=== PATIENT | male | born 1960 | race Two or more races ===

== ENCOUNTER 2018-08-06 07:53 | Outpatient (CLI) | payer OTHER | END 2018-08-06 08:01 | disposition home or self-care (01) | LOC: SONOGRAMA 07:53 | DX: R22.1 Localized swelling, mass and lump, neck (principal) ==

== ENCOUNTER 2019-06-06 16:23 | Inpatient (IN) | payer OTHER ==
[~2019-06-06] VITALS: Ht 182.9 cm; Wt 111.1 kg
[2019-06-19] MEDS ORDERED: FENOFIBRATE PO (11:59)
[2019-06-19] MEDS ORDERED: PREVACID30 MG PO (11:59)
[2019-06-19] MEDS ORDERED: TOPROL XL50 M1 PO (12:00)
[2019-06-19] MEDS ORDERED: TRAZODONE HCL150 MG PO (12:00)
[2019-06-19] MEDS ORDERED: ABILIFY PO (12:01)
[2019-06-19] MEDS ORDERED: FLUOXETINE PO (12:02)
[2019-06-19] MEDS ORDERED: ATACAND HCT 321 EACH PO (12:12)
[2019-06-25] MEDS ORDERED: FLUOXETINE HCL20 M1 PO (08:08)
[2019-06-25] MEDS ORDERED: ESCITALOPRAM OX20 MG PO (08:08)
[2019-06-25] MEDS ORDERED: ARIPIPRAZOLE15 MG PO (08:09)
[2019-06-25] MEDS ORDERED: FENOFIBRATE160 MG PO (08:09)
[2019-06-25] MEDS ORDERED: DICYCLOMINE HCL20 MG PO (08:10)
[2019-06-27] MEDS ORDERED: PERCOCET 5-3251 EACH PO (14:20)
[2019-06-27] MEDS ORDERED: INTESTINEX680 M1 PO (14:20)
== END 2019-06-27 16:21 | disposition home or self-care (01) | DRG 331 ==
LOC: SURG 06-19 10:15 → O/R 06-25 05:15 → SURH 06-25 05:15 → SURG 06-25 07:00 → SURH 06-25 13:46
PROVIDERS: ADMIT Surgery
PROC: 0DTM4ZZ Resection of Descending Colon, Percutaneous Endoscopic Approach (ICD-10-PCS; 2019-06-25)
PROC: 0DJD8ZZ Inspection of Lower Intestinal Tract, Via Natural or Artificial Opening Endoscopic (ICD-10-PCS; 2019-06-25)
PROC: 0DTN4ZZ Resection of Sigmoid Colon, Percutaneous Endoscopic Approach (ICD-10-PCS; principal; 2019-06-25 07:00)
DX: K57.32 Diverticulitis of large intestine without perforation or abscess without bleeding (principal); K63.89 Other specified diseases of intestine; I10 Essential (primary) hypertension

== ENCOUNTER 2019-06-18 12:39 | Outpatient (CLI) | payer OTHER ==
[2019-06-19] MEDS ORDERED: FENOFIBRATE PO (11:59)
[2019-06-19] MEDS ORDERED: PREVACID30 MG PO (11:59)
[2019-06-19] MEDS ORDERED: TOPROL XL50 M1 PO (12:00)
[2019-06-19] MEDS ORDERED: TRAZODONE HCL150 MG PO (12:00)
[2019-06-19] MEDS ORDERED: ABILIFY PO (12:01)
[2019-06-19] MEDS ORDERED: FLUOXETINE PO (12:02)
[2019-06-19] MEDS ORDERED: ATACAND HCT 321 EACH PO (12:12)
== END 2019-06-18 12:44 | disposition home or self-care (01) ==
LOC: LAB 12:39
DX: K57.32 Diverticulitis of large intestine without perforation or abscess without bleeding (principal)

== ENCOUNTER 2019-06-20 07:55 | Outpatient (CLI) | payer OTHER ==
[~2019-06-20 07:55] MED LIST: ABILIFY PO; ATACAND HCT 321 EACH PO; FENOFIBRATE PO; FLUOXETINE PO; PREVACID30 MG PO; TOPROL XL50 M1 PO; TRAZODONE HCL150 MG PO
== END 2019-06-20 08:00 | disposition home or self-care (01) ==
LOC: TOM 07:55
DX: K57.32 Diverticulitis of large intestine without perforation or abscess without bleeding (principal)
CPT/HCPCS: 74177; Q9965

== ENCOUNTER 2020-04-03 06:17 | Outpatient (CLI) | payer OTHER ==
[~2020-04-03 06:17] MED LIST changes: +ARIPIPRAZOLE15 MG PO; +DICYCLOMINE HCL20 MG PO; +ESCITALOPRAM OX20 MG PO; +FENOFIBRATE160 MG PO; +FLUOXETINE HCL20 M1 PO; +INTESTINEX680 M1 PO; +PERCOCET 5-3251 EACH PO
== END 2020-04-03 07:44 | disposition home or self-care (01) ==
LOC: LAB 06:17
PROVIDERS: ATTEND Surgery
DX: K57.32 Diverticulitis of large intestine without perforation or abscess without bleeding (principal); R10.32 Left lower quadrant pain

== ENCOUNTER 2020-04-13 07:38 | Day surgery (SDC) | payer OTHER | END 2020-04-13 13:11 | disposition home or self-care (01) | LOC: AMB-ENDOS 07:38 | PROVIDERS: ATTEND Surgery | DX: K57.32 Diverticulitis of large intestine without perforation or abscess without bleeding (principal); Z20.828 Contact with and (suspected) exposure to other viral communicable diseases ==

== ENCOUNTER 2024-03-12 15:28 | Emergency (ER) | payer OTHER ==
[~2024-03-12] VITALS: Ht 182.9 cm; Wt 117.9 kg
[2024-03-12] MEDS ORDERED: KETOROLAC TROMETHAMINE 30 MG VIAL IM STA (17:49)
[2024-03-12] MEDS ORDERED: ORPHENADRINE CITRATE 30 MG/ML AMPUL IM STA (17:49)
[2024-03-12] MEDS ORDERED: ORPHENADRINE CITRATE 30 MG/ML AMPUL ONE (18:01)
[2024-03-12] MEDS ORDERED: KETOROLAC TROMETHAMINE 30 MG VIAL ONE (18:02)
[2024-03-12] MEDS ORDERED: NEURONTIN300 MG PO (18:14)
[2024-03-12] MEDS ORDERED: ZANAFLEX4 MG PO (18:14)
[2024-03-12] MEDS ORDERED: DICLOFENAC POTA50 MG PO (18:14)
== END 2024-03-12 18:21 | disposition home or self-care (01) ==
LOC: ER 15:29
DX: M54.51 Vertebrogenic low back pain (principal); I10 Essential (primary) hypertension
CPT/HCPCS: 96372; 99282; J1885; J2360